=== PATIENT | male | born 1960 | race American Indian/Alaskan Native ===

== ENCOUNTER 2018-12-11 07:21 | Day surgery (SDC) | payer OTHER ==
[2018-12-11] MEDS ORDERED: WATER FOR IRRIG STERILE IR ONE (07:44)
[2018-12-11] MEDS ORDERED: WATER FOR IRRIG STERILE ONE (07:44)
[2018-12-11] MEDS ORDERED: NACL 0.9% 1000 ML 1,000 ML IV SCH (08:00)
--- NOTE | 2018-12-11 08:38 | Anesthesia Day of Surgery ---
Anesthesia Day of Surgery - Day of Surgery Patient Examined: Yes Patient H&P Reviewed: Yes Patient is NPO: Yes
--- NOTE | 2018-12-11 08:39 | Anesthesia Consultation ---
Anesthesia Consult and Med Hx Date of service: 12/11/18 - Airway Anesthetic Teeth Evaluation: Good ROM Head & Neck: Adequate Mental/Hyoid Distance: Adequate Mallampati Class: Class II Intubation Access Assessment: Probably Good - Pre-Operative Health Status ASA Pre-Surgery Classification: ASA2 Proposed Anesthetic Plan: MAC - Pulmonary Hx Smoking: Yes (FORMER. QUIT OVER 20YRS) - Cardiovascular System Hx Hypertension: Yes - Other Systems Hx Obesity: Yes (BMI 35)
[2018-12-11] MEDS ORDERED: VERSED ONE (08:48)
[2018-12-11] MEDS ORDERED: DIPRIVAN 10 MG/ML IV ONE ×2 (08:48)
--- NOTE | 2018-12-11 09:30 | Procedure Note ---
Date of procedure: 12/11/18 Pre-op diagnosis: Colon Polyp Screening/ Previous h/o Colon Polyp Post-op diagnosis: other (No colon Polyp now/ Minor Internal Hemorrhoid/ No diverticular Disease) Procedure: Colonoscopy Anesthesia: MAC Surgeon: KYUNG PETER Estimated blood loss: none Pathology: none Condition: stable Disposition: same day (Resume home medication and follow up in one to two weeks ([phone]).)
--- NOTE | 2018-12-11 09:44 | Operative Report ---
PROCEDURE: Colonoscopy. INDICATIONS: This is a 58-year-old -[place] gentleman with an underlying history of hypertension, prior history of colon polyps and a family history of colon cancer who had a colonoscopy done to make sure there was not any recurrence of any polyps. Last colonoscopy was few years back. DESCRIPTION OF PROCEDURE: Procedure was done after getting informed consent with MAC anesthesia. Initial rectal exam was unremarkable. Instrument was passed through the rectum onto the cecum, which was identified with ileocecal valve and appendiceal orifice. Visualization was fair to good. The scope was retroflexed in the cecum and then withdrawn to the hepatic flexure and reintroduced. No additional pathology was noted. Cecum, ascending colon, transverse colon, descending colon and sigmoid showed normal mucosa. There was no evidence of any polyps, colitis or diverticular disease and the rectum showed some minor internal hemorrhoid on the retroverted view. ASSESSMENT: History of colon polyps, none now. Minor internal hemorrhoid. No diverticular disease noted. Plan is to have the patient resume previous medication and follow up in the office in 1-2 weeks' time.Patient done in the presence and with assistance of the GI lab team which included the GI nurse and the underwriting technician. JOB# [id number] HEATHER/AMISHA WOO
[2018-12-11 10:01] VITALS: BP 128/85
[2018-12-11] MEDS ORDERED: XYLOCAINE MPF 2% ONE (12:00)
== END 2018-12-11 07:22 | disposition home or self-care (01) ==
LOC: GIO 07:21
DX: Z12.11 Encounter for screening for malignant neoplasm of colon (principal); K64.8 Other hemorrhoids; I10 Essential (primary) hypertension; E66.9 Obesity, unspecified; Z86.010 Personal history of colon polyps; Z80.0 Family history of malignant neoplasm of digestive organs; Z87.891 Personal history of nicotine dependence; Z79.899 Other long term (current) drug therapy; Z68.35 Body mass index [BMI] 35.0-35.9, adult; Z90.49 Acquired absence of other specified parts of digestive tract; Z98.890 Other specified postprocedural states
CPT/HCPCS: 45378; J2250; J2704; J7030